=== PATIENT | male | born 1950 | race Caucasian/White ===

== ENCOUNTER → 2018-12-30 | Outpatient (CLI) | payer MEDICARE ==
--- NOTE | 2018-12-30 08:40 | KCIC ---
Indication:Gross hematuria. TECHNIQUE: Grayscale, color Doppler and spectral waveform is of the kidneys obtained. COMPARISON:None FINDINGS: The right kidney measures 10.7 x 5.0 x 5.0 cm (longitudinal, AP, transverse) without hydronephrosis. The left kidney measures 11.5 x 6.0 x 5.8 cm without hydronephrosis. There is a 3.5 x 3.0 x 4.4 cm well-circumscribed nonvascular anechoic lesion in the interpolar left kidney most likely a simple cyst. Another anechoic lesion measuring 3.0 x 2.6 x 2.6 cm demonstrating similar characteristics most likely another simple cyst. Bladder is decompressed limiting evaluation. IMPRESSION: 1. No hydronephrosis. 2. Couple of simple appearing cysts in the left kidney. 3. No apparent renal stones. If concern for renal mass or stones is high, please consider CT abdomen pelvis with IV contrast. Electronically signed by: Kris Rapp DO (12/30/2018 8:37 AM) [id number]
== END | disposition home or self-care (01) ==
LOC: KCIC US 07:46
PROVIDERS: ATTEND Urology
DX: R31.0 Gross hematuria (principal); N40.0 Benign prostatic hyperplasia without lower urinary tract symptoms; R93.41 Abnormal radiologic findings on diagnostic imaging of renal pelvis, ureter, or bladder
CPT/HCPCS: 76770